=== PATIENT | male | born 1960 | race Caucasian/White ===

== ENCOUNTER 2018-06-12 16:37 | Emergency (ER) | payer BC, SELFPAY ==
--- NOTE | 2018-06-12 17:28 | RAD REPORT ---
EXAM DESCRIPTION: USExtremity Venous Uni Ltd06/12/2018 5:17 pm CLINICAL HISTORY: left leg pain and swelling. COMPARISON: None. FINDINGS: Left common femoral, superficial femoral, popliteal and posterior tibial veins are compre ssible and demonstrate augmentation. Doppler demonstrates good flow. IMPRESSION: No evidence of deep venous thrombosis involving the left lower extremity.
[2018-06-12] MEDS ORDERED: HYDROCODONE/APAP 10/325 TAB ONE (17:34)
[2018-06-12 17:56] LABS: Absolute Lymphocytes (CBC) 1.6 K/uL (0.7-4.9); Absolute Monocytes 0.5 K/uL (0.1-1.3); Absolute Neutrophil 4.8 K/uL (1.8-8.0); Basophils % 0.4 % (0-1.3); Eosinophils % 2.1 % (0-4.4); Lymphocytes % 22.6 % (15.3-44.8); MCH 32.1 pg (27.0-35.0); MCV 93.8 fL (80-100); MPV 9.4 fL (7.6-11.3); Monocytes % 6.4 % (3.3-12.3); RBC Red Blood Cell Count 5.54 M/uL (4.33-5.43)
[2018-06-12 18:09] LABS: Potassium 3.9 mmol/L (3.5-5.1)
--- NOTE | 2018-06-12 19:33 | ER ---
Nurse's Notes [facility] Name: Shady Chapa Age: 57 yrs Sex: Male : 1960 Arrival Date: 06/12/2018 Time: 16:41 Bed 25 Private MD: None, None Diagnosis: Pain in left lower leg Presentation: 06/12 16:49 Presenting complaint: Patient states: "I've got a blood clot in my left leg." Pt ss reports that he has not seen a doctor for this yet, but the symptoms are similar to when he had a DVT in his R leg. L leg pain began 3 days ago. Transition of care: patient was not received from another setting of care. Onset of symptoms was June 09, 2018. Risk Assessment: Do you want to hurt yourself or someone else? Patient reports no desire to harm self or others. Initial Sepsis Screen: Does the patient meet any 2 criteria? No. Patient's initial sepsis screen is negative. Does the patient have a suspected source of infection? No. Patient's initial sepsis screen is negative. Care prior to arrival: None. 16:49 Method Of Arrival: Wheelchair ss 16:49 Acuity: ROSARIO 3 ss Triage Assessment: 17:01 General: Appears uncomfortable, Behavior is anxious. Pain: Complains of pain in left ls4 leg Pain currently is 10 out of 10 on a pain scale. Historical: - Allergies: 16:51 No Known Allergies; ss - Home Meds: 16:51 None [Active]; ss - PMHx: 16:51 DVT; ss - PSHx: 16:51 None; ss - Immunization history:: Adult Immunizations up to date. - Social history:: Smoking status: Patient uses tobacco products, smokes two packs cigarettes per day. - Ebola Screening: : Patient denies exposure to infectious person Patient denies travel to an Ebola-affected area in the 21 days before illness onset. Screenin:00 Abuse screen: Denies threats or abuse. Denies injuries from another. Nutritional ls4 screening: No deficits noted. Tuberculosis screening: No symptoms or risk factors identified. Fall Risk None identified. Assessment: 16:50 General: Appears in no apparent distress. uncomfortable, Behavior is anxious. Pain: ls4 Complains of pain in left calf and left leg Pain currently is 10 out of 10 on a pain scale. Neuro: No deficits noted. Cardiovascular: Pulses are 2+ in right radial artery, right dorsalis pedis artery, left radial artery and left dorsalis pedis artery. Respiratory: Airway is patent Respiratory effort is even, unlabored, Respiratory pattern is regular. GI: No deficits noted. : No deficits noted. Musculoskeletal: Circulation, motion, and sensation intact. Capillary refill < 3 seconds, Range of motion: intact in all extremities, Swelling absent. Vital Signs: 16:48 BP 130 / 86; Pulse 84; Resp 18; Temp 98.2(TE); Pulse Ox 95% on R/A; Weight 97.52 kg; ss Height 5 ft. 9 in. (175.26 cm); Pain 10/10; 18:00 BP 128 / 76; Pulse 80; Resp 16; Pulse Ox 97% on R/A; Pain 3/10; ls4 19:00 BP 126 / 70; Pulse 78; Resp 16; Pulse Ox 97% on R/A; Pain 3/10; ls4 19:30 BP 132 / 84; Pulse 78; Resp 16; Pulse Ox 99% on R/A; Pain 3/10; ls4 16:48 Body Mass Index 31.75 (97.52 kg, 175.26 cm) ED Course: 16:41 Patient arrived in ED. mr 16:42 None, None is Private Physician. mr 16:48 Arm band placed on right wrist. ss 16:51 Triage completed. ss 16:51 Cassandra Batista FNP-C is [facility]. kb 16:51 Tad No MD is Attending Physician. kb 16:56 Dee Berman, RN is Primary Nurse. ls4 17:01 Patient has correct armband on for positive identification. Bed in low position. Call ls4 light in reach. Side rails up X 1. 17:01 No provider procedures requiring assistance completed. ls4 17:11 Radiology exam delayed due to waiting for pain meds before doing venous doppler- ER to hr call when done giving meds. 17:17 US Extremity Venous Unilateral Ltd In Process Unspecified. EDMS 19:15 US LE Artery Uni Ltd In Process Unspecified. EDMS 20:21 Patient did not have IV access during this emergency room visit. ls4 Administered Medications: 17:27 Drug: [place] 10 mg-325 mg 1 tabs Route: PO; ls4 18:05 Follow up: Response: No adverse reaction; Pain is decreased ls4 Outcome: 18:38 Condition: stable ls4 19:32 Discharge ordered by MD. brooke 19:51 Discharged to home ambulatory. ls4 19:51 Discharge instructions given to patient, Instructed on discharge instructions, follow up and referral plans. medication usage, safety practices, Demonstrated understanding of instructions, follow-up care, medications. 19:56 Patient left the ED. ls4 Signatures: Dispatcher [employer] EDTN Cassandra Batista, CLOTH LAMINATING SUPERVISOR-C CLOTH LAMINATING SUPERVISOR-Marlee Connor mr Tim, Courtney Gupta, RN RN Dee Armas, RN RN ls4
--- NOTE | 2018-06-12 19:33 | EDPHYS ---
Physician Documentation [facility] Name: Shady Chapa Age: 57 yrs Sex: Male : 1960 Arrival Date: 06/12/2018 Time: 16:41 Bed 25 Private MD: None, None ED Physician Tad No HPI: 06/12 17:41 This 57 yrs old Male presents to ER via Wheelchair with complaints of Leg kb Pain. 17:41 The patient presents with pain, that is acute. The complaints affect the left calf. kb Context: The problem was sustained at an unknown site, resulted from an unknown cause, the patient can fully bear weight, the patient is able to ambulate, Problem is a result from a previous injury: No. Onset: The symptoms/episode began/occurred 3 day(s) ago. Modifying factors: The symptoms are alleviated by nothing. the symptoms are aggravated by movement, palpation. Associated signs and symptoms: Pertinent positives: calf tenderness, Pertinent negatives fever, nausea, numbness, rash, swelling, tingling, vomiting, warmth, weakness. Treatment prior to arrival includes: no previous treatment. Severity of symptoms: At their worst the symptoms were severe, in the emergency department the symptoms are unchanged. The patient has experienced a previous episode, and the symptoms today are exactly the same. The patient has not recently seen a physician. 17:50 Pt reports left calf pain that is exactly the same as when he had a blood clot in his kb right calf. States he recently drove to [place] and thinks that is why he developed a clot. . Historical: - Allergies: 16:51 No Known Allergies; ss - Home Meds: 16:51 None [Active]; ss - PMHx: 16:51 DVT; ss - PSHx: 16:51 None; ss - Immunization history:: Adult Immunizations up to date. - Social history:: Smoking status: Patient uses tobacco products, smokes two packs cigarettes per day. - Ebola Screening: : Patient denies exposure to infectious person Patient denies travel to an Ebola-affected area in the 21 days before illness onset. ROS: 17:22 Constitutional: Negative for fever, chills, and weight loss, ENT: Negative for injury, kb pain, and discharge, Neck: Negative for injury, pain, and swelling, Cardiovascular: Negative for chest pain, palpitations, and edema, Respiratory: Negative for shortness of breath, cough, wheezing, and pleuritic chest pain, Abdomen/GI: Negative for abdominal pain, nausea, vomiting, diarrhea, and constipation, Back: Negative for injury and pain, : Negative for injury, bleeding, discharge, and swelling, Skin: Negative for injury, rash, and discoloration, Neuro: Negative for headache, weakness, numbness, tingling, and seizure. 17:22 MS/extremity: Positive for pain, of the left calf. Exam: 17:40 Constitutional: This is a well developed, well nourished patient who is awake, alert, kb and in no acute distress. Head/Face: Normocephalic, atraumatic. Chest/axilla: Normal chest wall appearance and motion. Nontender with no deformity. No lesions are appreciated. Cardiovascular: Regular rate and rhythm with a normal S1 and S2. No gallops, murmurs, or rubs. Normal PMI, no JVD. No pulse deficits. Respiratory: Lungs have equal breath sounds bilaterally, clear to auscultation and percussion. No rales, rhonchi or wheezes noted. No increased work of breathing, no retractions or nasal flaring. Abdomen/GI: Soft, non-tender, with normal bowel sounds. No distension or tympany. No guarding or rebound. No evidence of tenderness throughout. Skin: Warm, dry with normal turgor. Normal color with no rashes, no lesions, and no evidence of cellulitis. Neuro: Awake and alert, GCS 15, oriented to person, place, time, and situation. Cranial nerves II-XII grossly intact. Motor strength 5/5 in all extremities. Sensory grossly intact. Cerebellar exam normal. Normal gait. 17:40 Musculoskeletal/extremity: Extremities: grossly normal except: noted in the left calf: pain, tenderness, ROM: intact in all extremities, Circulation is intact in all extremities. Sensation intact. Severe pain noted. Weight bearing: able to fully bear weight, Calves: are tender, on left. Vital Signs: 16:48 BP 130 / 86; Pulse 84; Resp 18; Temp 98.2(TE); Pulse Ox 95% on R/A; Weight 97.52 kg; ss Height 5 ft. 9 in. (175.26 cm); Pain 10/10; 18:00 BP 128 / 76; Pulse 80; Resp 16; Pulse Ox 97% on R/A; Pain 3/10; ls4 19:00 BP 126 / 70; Pulse 78; Resp 16; Pulse Ox 97% on R/A; Pain 3/10; ls4 19:30 BP 132 / 84; Pulse 78; Resp 16; Pulse Ox 99% on R/A; Pain 3/10; ls4 16:48 Body Mass Index 31.75 (97.52 kg, 175.26 cm) ss MDM: 16:51 Patient medically screened. kb 17:39 Data reviewed: vital signs, nurses notes. Data interpreted: Pulse oximetry: on room air kb is 95 %. Interpretation: normal. 19:31 Counseling: I had a detailed discussion with the patient and/or guardian regarding: the kb historical points, exam findings, and any diagnostic results supporting the discharge/admit diagnosis, lab results, radiology results, the need for outpatient follow up, a family practitioner, to return to the emergency department if symptoms worsen or persist or if there are any questions or concerns that arise at home. 06/12 17:29 Order name: CBC with Diff; Complete Time: 18:03 kb 06/12 17:29 Order name: Basic Metabolic Panel; Complete Time: 18:13 kb 06/12 16:55 Order name: Extremity Venous Unilateral Ltd; Complete Time: 17:30 kb 06/12 18:29 Order name: LE Artery Uni Ltd kb Administered Medications: 17:27 Drug: [place] 10 mg-325 mg 1 tabs Route: PO; ls4 18:05 Follow up: Response: No adverse reaction; Pain is decreased ls4 Disposition: 06/13 06:32 Co-signature as Attending Physician, Tad No MD I agree with the assessment and jay plan of care. Disposition: 06/12/18 19:32 Discharged to Home. Impression: Pain in left lower leg. - Condition is Stable. - Discharge Instructions: Musculoskeletal Pain. - Prescriptions for Tramadol 50 mg Oral Tablet - take 1 tablet by ORAL route every 8 hours as needed; 12 tablet. - Medication Reconciliation Form, Thank You Letter, Antibiotic Education, Prescription Opioid Use form. - Follow up: Emergency Department; When: As needed; Reason: Worsening of condition. Follow up: Private Physician; When: 2 - 3 days; Reason: Recheck today's complaints, Continuance of care, Re-evaluation by your physician. Signatures: Dispatcher [employer] EDMS Cassandra Batista, IN SERVICE EDUCATOR-C IN SERVICE EDUCATOR-Ckb Tad No MD MD cha Smirch, Shelby, RN RN ss Dee Berman RN RN ls4 Corrections: (The following items were deleted from the chart) 06/12 17:41 17:40 Musculoskeletal/extremity: Extremities: grossly normal except: noted in the left kb calf: pain, tenderness, ROM: intact in all extremities, Circulation is intact in all extremities. Sensation intact. Weight bearing: able to fully bear weight, Calves: are tender, on left, kb 17:51 17:41 The patient has not experienced similar symptoms in the past, [facility] 19:56 19:32 06/12/2018 19:32 Discharged to Home. Impression: Pain in left lower leg. ls4 Condition is Stable. Forms are Medication Reconciliation Form, Thank You Letter, Antibiotic Education, Prescription Opioid Use. Follow up: Emergency Department; When: As needed; Reason: Worsening of condition. Follow up: Private Physician; When: 2 - 3 days; Reason: Recheck today's complaints, Continuance of care, Re-evaluation by your physician. kb
[2018-06-12 20:48] VITALS: BP 130/86; TEMP 98.2; O2SAT 95
--- NOTE | 2018-06-13 10:24 | RAD REPORT ---
EXAM DESCRIPTION: US - Lower Extremity Artery Uni Ltd - 06/12/2018 7:14 pm CLINICAL HISTORY: Leg pain COMPARISON: None. TECHNIQUE: Doppler and grayscale evaluation of the left lower extremity arterial tree performed. Wav eforms and velocity values were obtained along with visual inspection. FINDINGS: Triphasic waveform pattern seen along the length of the left lower extremity.No occlusion or focal flow restricting lesion identifiable. Common femoral artery peak systolic velocity was 120 cm/second. Femoral artery velocity values range from 84 - 106 cm/second. Velocity taper to 59 cm/second in the popliteal artery. Posterior tibial art surinder was 74 cm/second with the dorsalis pedis artery 86 cm/second. IMPRESSION: Normal triphasic waveform pattern along the length of the left lower extremity. No signi ficant atherosclerotic change, focal flow restricting lesion or occlusion.
== END 2018-06-12 19:56 | disposition home or self-care (01) ==
LOC: ER 16:37
DX: M79.662 Pain in left lower leg (principal); F17.210 Nicotine dependence, cigarettes, uncomplicated; Z86.718 Personal history of other venous thrombosis and embolism
CPT/HCPCS: 36415; 80048; 85025; 93926; 93971; 99283

== ENCOUNTER → 2023-09-04 | Emergency (ER) | payer SELFPAY ==
[~2023-09-04] MED LIST: APIXABAN 5 MG TABLET ONE
--- NOTE | 2023-09-05 01:49 | ER ---
Nurse's Notes [facility] Name: Shady Chapa Age: 62 yrs Sex: Male : 1960 Arrival Date: 09/04/2023 Time: 23:41 Bed 10 Private MD: Diagnosis: Deep Venous thrombosis Presentation: 09/04 00:11 Chief complaint: Patient states: left calf pain, swollen and tight for 9 days, has vc1 polyps so sits on toilet a lot. History of right leg DVT. Coronavirus screen: Client denies travel out of the [place] in the last 14 days. At this time, the client does not indicate any symptoms associated with coronavirus-19. Ebola Screen: Patient negative for fever greater than or equal to 101.5 degrees Fahrenheit, and additional compatible Ebola Virus Disease symptoms Patient denies exposure to infectious person. Patient denies travel to an Ebola-affected area in the 21 days before illness onset. No symptoms or risks identified at this time. Risk Assessment: Do you want to hurt yourself or someone else? Patient reports no desire to harm self or others. Onset of symptoms was September 03, 2023. Care prior to arrival: Medication(s) given: ASA, started taking aspirin when swelling started. 00:11 Method Of Arrival: Ambulatory vc1 00:11 Acuity: ROSARIO 3 vc1 00:11 Initial Sepsis Screen: Does the patient meet any 2 criteria? No. Patient's initial vc1 sepsis screen is negative. Does the patient have a suspected source of infection? No. Patient's initial sepsis screen is negative. Triage Assessment: 00:15 General: Appears in no apparent distress. comfortable, Behavior is calm, cooperative, vc1 appropriate for age. Pain: Complains of pain in left calf Pain does not radiate. Pain currently is 5 out of 10 on a pain scale. at worst was 8 out of 10 on a pain scale. Quality of pain is described as sharp, Pain began 9 days ago Is continuous, Aggravated by bending foot. EENT: No deficits noted. No signs and/or symptoms were reported regarding the EENT system. Neuro: Level of Consciousness is awake, alert, obeys commands, Oriented to person, place, time, situation, Appropriate for age. Cardiovascular: No deficits noted. Heart tones S1 S2. Respiratory: Airway is patent Respiratory effort is even, unlabored, Respiratory pattern is regular, symmetrical, Breath sounds are clear. GI: No deficits noted. No signs and/or symptoms were reported involving the gastrointestinal system. : No deficits noted. No signs and/or symptoms were reported regarding the genitourinary system. Derm: Reports pain that is 5 out of 10 on a pain scale. swelling to left lower legs. Musculoskeletal: Reports pain in left calf. Historical: - Allergies: 00:13 No Known Allergies; vc1 - PMHx: 00:13 DVT; Polyps (DVT); vc1 - PSHx: 00:13 Polyp (DVT); Right IVC filter (DVT); vc1 - Immunization history:: Client reports having NOT received the Covid vaccine. Flu vaccine is not up to date. - Social history:: Smoking status: Patient reports the use of cigarette tobacco products, smokes one pack cigarettes per day. Screenin:14 Abuse screen: Denies threats or abuse. Nutritional screening: No deficits noted. vc1 Tuberculosis screening: No symptoms or risk factors identified. 00:14 [facility] ED Fall Risk Assessment (Adult) History of falling in the last 3 months, vc1 including since admission No falls in past 3 months (0 pts) Confusion or Disorientation No (0 pts) Intoxicated or Sedated No (0 pts) Impaired Gait No (0 pts) Mobility Assist Device Used No (0 pt) Altered Elimination No (0 pt) Score/Fall Risk Level 0 - 2 = Low Risk Oriented to surroundings, Maintained a safe environment, Educated pt \T\ family on fall prevention, incl call for assistance when getting out of bed. Assessment: 02:16 General: See triage assessment. vc1 Vital Signs: 00:11 Weight 81.65 kg; Height 5 ft. 9 in. ; Pain 5/10; vc1 00:28 BP 117 / 62; Pulse 58; Resp 17; Temp 98.1; Pulse Ox 100% ; jr12 00:11 Body Mass Index 26.58 (81.65 kg, 175.26 cm) vc1 00:11 Pain Scale: Adult vc1 ED Course: 09/03 23:57 Patient arrived in ED. gm2 23:59 Alex Rodas DO is Attending Physician. ms3 03 00:13 Triage completed. vc1 00:14 Arm band placed on left wrist. vc1 00:17 Patient has correct armband on for positive identification. Placed in gown. Call light vc1 in reach. 00:57 US Extremity Venous Unilateral Ltd In Process Unspecified. EDMS 01:48 Edward Carlson DO is Referral Physician. ms3 02:15 No provider procedures requiring assistance completed. Patient did not have IV access vc1 during this emergency room visit. Administered Medications: 02:10 Drug: Eliquis PO 10 mg PO once Route: PO; cg Medication: 00:17 VIS not applicable for this client. vc1 Outcome: 01:48 Discharge ordered by MD. ms3 02:15 Discharged to home ambulatory, vc1 02:15 Condition: good 02:15 Discharge instructions given to patient, Instructed on discharge instructions, follow up and referral plans. medication usage, Demonstrated understanding of instructions, follow-up care, medications, Prescriptions given X 1, 02:17 Patient left the ED. vc1 Signatures: Dispatcher [employer] EDMS Arcelia Valencia, RN RN Alex Ponce DO DO ms3 Yazmin Dillon RN RN vc1 Silvana Machado [facility], [place] Alyson Julian 2
--- NOTE | 2023-09-05 01:49 | EDPHYS ---
Physician Documentation [facility] Name: Shady Chapa Age: 62 yrs Sex: Male : 1960 Arrival Date: 09/04/2023 Time: 23:41 Bed 10 Private MD: ED Physician Alxe Rodas HPI: 09/04 00:20 This 62 yrs old Male presents to ER via Ambulatory with complaints of Leg Pain, Leg ms3 Swelling. 00:20 62-year-old male with past medical history of DVT presents to the emergency department ms3 for left leg swelling for 9 days. Patient states his left calf pain is worse with flexing his foot. Patient denies alleviating factors. Patient denies chest pain, shortness of breath, nausea, vomiting, fevers, chills. Historical: - Allergies: 00:13 No Known Allergies; vc1 - PMHx: 00:13 DVT; Polyps (DVT); vc1 - PSHx: 00:13 Polyp (DVT); Right IVC filter (DVT); vc1 - Immunization history:: Client reports having NOT received the Covid vaccine. Flu vaccine is not up to date. - Social history:: Smoking status: Patient reports the use of cigarette tobacco products, smokes one pack cigarettes per day. ROS: 00:20 Constitutional: Negative for fever, and chills. Neck: Negative for injury, pain, and ms3 swelling, Cardiovascular: Negative for chest pain, and palpitations. Respiratory: Negative for shortness of breath, cough, wheezing, and pleuritic chest pain, Abdomen/GI: Negative for abdominal pain, nausea, vomiting, diarrhea, and constipation, 00:20 MS/extremity: Positive for pain, swelling, tenderness, Exam: 00:20 Constitutional: This is a well developed, well nourished patient who is awake, alert, ms3 and in no acute distress. Head/Face: Normocephalic, atraumatic. Neck: Trachea midline, no cervical lymphadenopathy. Supple, full range of motion without nuchal rigidity, or vertebral point tenderness. No Meningismus. Chest/axilla: Normal chest wall appearance and motion. Nontender with no deformity. Cardiovascular: Regular rate and rhythm with a normal S1 and S2. No gallops, murmurs, or rubs. Normal PMI, no JVD. No pulse deficits. Respiratory: Lungs have equal breath sounds bilaterally, clear to auscultation and percussion. No rales, rhonchi or wheezes noted. No increased work of breathing, no retractions or nasal flaring. Abdomen/GI: Soft, non-tender, with normal bowel sounds. No distension or tympany. No guarding or rebound. No evidence of tenderness throughout. Skin: Warm, dry with normal turgor. Normal color with no rashes, no lesions, and no evidence of cellulitis. 00:20 Musculoskeletal/extremity: Extremities: noted in the left calf: pain, swelling, tenderness, Vital Signs: 00:11 Weight 81.65 kg; Height 5 ft. 9 in. ; Pain 5/10; vc1 00:28 BP 117 / 62; Pulse 58; Resp 17; Temp 98.1; Pulse Ox 100% ; jr12 00:11 Body Mass Index 26.58 (81.65 kg, 175.26 cm) vc1 00:11 Pain Scale: Adult vc1 MDM: 00:18 Patient medically screened. ms3 00:20 Differential diagnosis: DVT versus musculoskeletal pain versus peripheral neuropathy. ms3 01:51 Data reviewed: vital signs, nurses notes, radiologic studies, ultrasound, and as a ms3 result, I will discharge patient. I considered the following discharge prescriptions or medication management in the emergency department Medications were administered in the Emergency Department. See MAR. Discussion of test interpretation with radiology: I had a discussion with radiology regarding a test interpretation. Popliteal DVT. Care significantly affected by the following chronic conditions: DVT. Counseling: I had a detailed discussion with the patient and/or guardian regarding the historical points, exam findings, and any diagnostic results supporting the discharge/admit diagnosis, radiology results, the need for outpatient follow up, to return to the emergency department if symptoms worsen or persist or if there are any questions or concerns that arise at home. Special discussion: I discussed with the patient/guardian in detail that at this point there is no indication for admission to the hospital. It is understood, however, that if the symptoms persist or worsen the patient needs to return immediately for re-evaluation. ED course: On reevaluation patient is without chest pain, shortness of breath. Discussed positive DVT on ultrasound with patient. Patient given 10 mg Eliquis in emergency department. Patient given prescription for Eliquis starting pack. Patient to follow-up with Dr. Carlson in 1 to 2 days. Patient understands and agrees with plan. All questions were answered. Return precautions discussed include worsening symptoms, or any other concerns. 09/04 00:19 Order name: US Extremity Venous Unilateral Ltd ms3 Administered Medications: 02:10 Drug: Eliquis PO 10 mg PO once Route: PO; cg Disposition Summary: 09/05/23 01:48 Discharge Ordered Notes: Location: Home ms3 Condition: Stable ms3 Diagnosis - Deep Venous thrombosis ms3 Followup: ms3 - With: Edward Carlson DO - When: 1 - 2 days - Reason: Recheck today's complaints Discharge Instructions: - Discharge Summary Sheet ms3 - Deep Vein Thrombosis ms3 Forms: - Medication Reconciliation Form ms3 - Thank You Letter ms3 - Antibiotic Education ms3 - Prescription Opioid Use ms3 - Patient Portal Instructions ms3 - Leadership Thank You Letter ms3 Prescriptions: - Eliquis DVT-PE Treat 30D Start 5 mg (74 tabs) Oral Tablet, Dose Pack - take 1 tablet ORAL route per package directions; 1 Pack; Refills: 0, Product ms3 Selection Permitted Signatures: Dispatcher [employer] Arcelia Stark, RN RN Alex Ponce DO DO ms3 Yazmin Dillon RN RN vc1
[2023-09-05 02:29] VITALS: BP 117/62; TEMP 98.1; O2SAT 100
--- NOTE | 2023-09-05 14:07 | RAD REPORT ---
EXAM DESCRIPTION: ADDENDUM #1 I communicated the above findings by telephone with Dr. Alex Rodas at 09/05/2023 1:41 AM CDT, who dem onstrated understanding of the above finding(s)/recommendation(s) and provided positive read back of the communication. Electronically signed by: Bear Perez MD 09/05/2023 02:04 AM CDT End of Addendum EXAMINATION: US EXTREMITY VEINS UNILATERAL CLINICAL HISTORY: Male, 62 years old, swelling, pain COMPARISON: None. TECHNIQUE: Grayscale and color/spectral Doppler ultrasound of the left lower extremity. FINDINGS: Loss of compressibility and detectable blood flow with heterogeneous occlusion of the popl iteal vein. Normal flow and compressibility in the left lower extremity common femoral, greater saphenous, femora l, peroneal and posterior tibial veins. No intraluminal thrombus is visualized. Visualized waveforms demonstrate normal respiratory variability. IMPRESSION: Occlusive, chronic appearing thrombus of the left popliteal vein. Physician notification of the above critical finding(s) is pending at the time of report dictation; a n addendum will be added after communication. Electronically signed by: Bear Perez MD 09/05/2023 01:36 AM CDT Due to temporary technical issues with the PACS/Fluency reporting system, reports are being signed by the in house radiologist without review as a courtesy to ensure prompt reporting. The interpreting r adiologist is fully responsible for the content of the report.
== END ==
LOC: ER 23:41
DX: I82.402 Acute embolism and thrombosis of unspecified deep veins of left lower extremity (principal)
CPT/HCPCS: 93971

== ENCOUNTER 2023-10-03 15:15 | Emergency (ER) | payer OTHER ==
[2023-10-03 16:26] LABS: Absolute Basophils 0.1 K/uL (0-0.5); Absolute Eosinophils 0.2 K/uL (0-0.5); Absolute Lymphocytes (CBC) 1.3 K/uL (0.7-4.9); Absolute Monocytes 0.4 K/uL (0.1-1.3); Absolute Neutrophil 3.7 K/uL (1.8-8.0); Basophils % 1.3 % (0-1.3); Eosinophils % 3.2 % (0-4.4); Hematocrit 23.4 % (39.6-49.0); Lymphocytes % 22.8 % (15.3-44.8); MCH 19.5 pg (27.0-35.0); MCV 64.9 fL (80-100); MPV 8.2 fL (7.6-11.3); Monocytes % 6.6 % (3.3-12.3); Neutrophils % 66.1 % (41.7-73.7); Platelets 253 thou/uL (152-406); RBC Red Blood Cell Count 3.61 M/uL (4.33-5.43); Red Cell Distribution Width 19.1 % (12.1-15.2)
[2023-10-03 16:49] LABS: Anion Gap 6.6 mEq/L (5.0-15.0); Potassium 3.6 mEq/L (3.5-5.1)
--- NOTE | 2023-10-03 16:56 | ER ---
[facility] Name: Shady Chapa Age: 62 yrs Sex: Male : 1960 Arrival Date: 10/03/2023 Time: 15:15 Bed 8 Private MD: Diagnosis: Anemia, unspecified Presentation: 10/02 15:22 Chief complaint: Patient states: pt had resent blood work done and his doctor called as6 and said to come to the ER due to low hemoglobin. Coronavirus screen: At this time, the client does not indicate any symptoms associated with coronavirus-19. Ebola Screen: No symptoms or risks identified at this time. Initial Sepsis Screen: Does the patient meet any 2 criteria? No. Patient's initial sepsis screen is negative. Does the patient have a suspected source of infection? No. Patient's initial sepsis screen is negative. Risk Assessment: Do you want to hurt yourself or someone else? Patient reports no desire to harm self or others. Onset of symptoms was October 03, 2023. 15:22 Method Of Arrival: Ambulatory as6 15:22 Acuity: ROSARIO 3 as6 Historical: - Allergies: 15:23 No Known Allergies; as6 - PMHx: 15:23 polyps (DVT); DVT; as6 - PSHx: 15:23 Right IVC filter; Polyp; as6 - Immunization history:: Adult Immunizations not up to date. - Infectious Disease History:: Denies. - Social history:: Smoking status: Patient reports the use of cigarette tobacco products, smokes one pack cigarettes per day. Screenin:27 [facility] ED Fall Risk Assessment (Adult) History of falling in the last 3 months, kc6 including since admission No falls in past 3 months (0 pts) Confusion or Disorientation No (0 pts) Intoxicated or Sedated No (0 pts) Impaired Gait No (0 pts) Mobility Assist Device Used No (0 pt) Altered Elimination No (0 pt) Score/Fall Risk Level 0 - 2 = Low Risk. Abuse screen: Denies threats or abuse. Denies injuries from another. Nutritional screening: No deficits noted. Tuberculosis screening: No symptoms or risk factors identified. Assessment: 15:54 General: Appears in no apparent distress. comfortable, well groomed, well developed, kc6 Behavior is calm, cooperative, appropriate for age. Pain: Denies pain. Neuro: Level of Consciousness is awake, alert, obeys commands, Oriented to person, place, time, situation, Appropriate for age. Cardiovascular: Capillary refill < 3 seconds. Respiratory: Airway is patent Trachea midline Respiratory effort is even, unlabored, Respiratory pattern is regular, symmetrical. GI: Reports rectal bleeding, bloody stool. : No signs and/or symptoms were reported regarding the genitourinary system. EENT: No signs and/or symptoms were reported regarding the EENT system. Derm: No signs and/or symptoms reported regarding the dermatologic system. Skin is intact, is healthy with good turgor, Skin is pink, warm \T\ dry. Musculoskeletal: No signs and/or symptoms reported regarding the musculoskeletal system. Circulation, motion, and sensation intact. Capillary refill < 3 seconds, Range of motion: intact in all extremities. 16:51 Reassessment: Patient appears in no apparent distress at this time. No changes from kc6 previously documented assessment. Patient and/or family updated on plan of care and expected duration. Pain level reassessed. Patient is alert, oriented x 3, equal unlabored respirations, skin warm/dry/pink. Vital Signs: 15:22 BP 117 / 68; Pulse 73; Resp 18 S; Temp 97.9(TE); Pulse Ox 99% on R/A; Weight 81.65 kg as6 (R); Height 5 ft. 9 in. (R); Pain 9/10; 16:51 BP 108 / 71; Pulse 65; Resp 16 S; Pulse Ox 100% on R/A; kc6 17:06 BP 110 / 68; Pulse 70; Resp 16; Pulse Ox 99% ; ko1 15:22 Body Mass Index 26.58 (81.65 kg, 175.26 cm) as6 15:22 Pain Scale: Adult as6 ED Course: 15:17 Patient arrived in ED. im 15:18 Alex Rodas DO is Attending Physician. ms3 15:21 Arm band placed on right wrist. as6 15:23 Triage completed. as6 15:26 Susie Zayas, ELIANA is Primary Nurse. kc6 15:27 Patient has correct armband on for positive identification. Placed in gown. Bed in low kc6 position. Call light in reach. Side rails up X 1. Client placed on continuous cardiac and pulse oximetry monitoring. NIBP monitoring applied. Warm blanket given. 15:54 Inserted saline lock: 20 gauge in right wrist, using aseptic technique. Blood collected.kc6 16:55 Edward Carlson DO is Referral Physician. ms3 17:06 Provided Education on: na. ko1 17:06 No provider procedures requiring assistance completed. IV discontinued, intact, ko1 bleeding controlled, No redness/swelling at site. Pressure dressing applied. Administered Medications: No medications were administered Medication: 17:06 VIS not applicable for this client. ko1 Outcome: 16:56 Discharge ordered by . ms3 17:07 Discharged to home ambulatory, ko1 17:07 Condition: stable 17:07 Discharge instructions given to patient, Instructed on discharge instructions, follow up and referral plans. Demonstrated understanding of instructions, follow-up care, 17:11 Patient left the ED. ko1 Signatures: Alex Rodas DO DO ms3 Bryant Herrera RN RN as6 Susie Zayas RN RN kc6 Azalia Flowers RN RN ko1 Ronna Diaz
--- NOTE | 2023-10-03 16:56 | EDPHYS ---
Physician Documentation [facility] Name: Shady Chapa Age: 62 yrs Sex: Male : 1960 Arrival Date: 10/03/2023 Time: 15:15 Bed 8 Private MD: ED Physician Alex Rodas HPI: 10/02 15:43 This 62 yrs old Male presents to ER via Ambulatory with complaints of Abnormal Lab [facility] Results. 15:43 [id number] male with past medical history of colon polyps and DVT presents to [facility] the emergency department for abnormal labs. Patient states he had lab work drawn last and was called on Tuesday stating his hemoglobin was less than 6. His black stools. Patient states he does have intermittent bloody stools; however, has not had any bloody stools recently. Patient denies pain. Historical: - Allergies: 15:23 No Known Allergies; as6 - PMHx: 15:23 polyps (DVT); DVT; as6 - PSHx: 15:23 Right IVC filter; Polyp; as6 - Immunization history:: Adult Immunizations not up to date. - Infectious Disease History:: Denies. - Social history:: Smoking status: Patient reports the use of cigarette tobacco products, smokes one pack cigarettes per day. ROS: 15:43 Constitutional: Negative for fever, and chills. Neck: Negative for injury, pain, and ms3 swelling, Cardiovascular: Negative for chest pain, and palpitations. Respiratory: Negative for shortness of breath, cough, wheezing, and pleuritic chest pain, Abdomen/GI: Negative for abdominal pain, nausea, vomiting, diarrhea, and constipation, MS/Extremity: Negative for injury and deformity, Skin: Negative for injury, rash, and discoloration, Exam: 15:43 Constitutional: This is a well developed, well nourished patient who is awake, alert, ms3 and in no acute distress. Head/Face: Normocephalic, atraumatic. Neck: Trachea midline, no cervical lymphadenopathy. Supple, full range of motion without nuchal rigidity, or vertebral point tenderness. No Meningismus. Chest/axilla: Normal chest wall appearance and motion. Nontender with no deformity. Cardiovascular: Regular rate and rhythm with a normal S1 and S2. No gallops, murmurs, or rubs. Normal PMI, no JVD. No pulse deficits. Respiratory: Lungs have equal breath sounds bilaterally, clear to auscultation and percussion. No rales, rhonchi or wheezes noted. No increased work of breathing, no retractions or nasal flaring. Abdomen/GI: Soft, non-tender, with normal bowel sounds. No distension or tympany. No guarding or rebound. No evidence of tenderness throughout. Skin: Warm, dry with normal turgor. Normal color with no rashes, no lesions, and no evidence of cellulitis. MS/ Extremity: Pulses equal, no cyanosis. Neurovascular intact. Full, normal range of motion. Vital Signs: 15:22 BP 117 / 68; Pulse 73; Resp 18 S; Temp 97.9(TE); Pulse Ox 99% on R/A; Weight 81.65 kg as6 (R); Height 5 ft. 9 in. (R); Pain 9/10; 16:51 BP 108 / 71; Pulse 65; Resp 16 S; Pulse Ox 100% on R/A; kc6 17:06 BP 110 / 68; Pulse 70; Resp 16; Pulse Ox 99% ; ko1 15:22 Body Mass Index 26.58 (81.65 kg, 175.26 cm) as6 15:22 Pain Scale: Adult as6 MDM: 15:25 Patient medically screened. ms3 15:43 Differential Diagnosis Anemia vs lab abnormality. ms3 16:56 Data reviewed: vital signs, nurses notes, lab test result(s), and as a result, I will ms3 discharge patient. Counseling: I had a detailed discussion with the patient and/or guardian regarding the historical points, exam findings, and any diagnostic results supporting the discharge/admit diagnosis, lab results, the need for outpatient follow up, to return to the emergency department if symptoms worsen or persist or if there are any questions or concerns that arise at home. Special discussion: I discussed with the patient/guardian in detail that at this point there is no indication for admission to the hospital. It is understood, however, that if the symptoms persist or worsen the patient needs to return immediately for re-evaluation. ED course: Discussed labs with patient. Patient hemoglobin less than 6 on currently 7. Patient to follow-up with Dr. Carlson in 2 to 3 days for reevaluation. Patient understands and agrees with plan. All questions were answered. Patient denies symptoms of lightheadedness, shortness of breath. On reevaluation patient is alert, no apparent distress, nontoxic-appearing, ambulatory emerged primary, speaking full sentences. 10/02 15:25 Order name: CBC with Diff ms3 10/02 15:25 Order name: BMP; Complete Time: 16:52 ms3 10/02 15:25 Order name: Type And Screen ms3 Administered Medications: No medications were administered Disposition Summary: 10/03/23 16:56 Discharge Ordered Notes: Location: Home ms3 Condition: Stable ms3 Diagnosis - Anemia, unspecified ms3 Followup: ms3 - With: Edward Carlson DO - When: 2 - 3 days - Reason: Recheck today's complaints Discharge Instructions: - Discharge Summary Sheet ms3 - Anemia ms3 Forms: - Medication Reconciliation Form ms3 - Thank You Letter ms3 - Antibiotic Education ms3 - Prescription Opioid Use ms3 - Patient Portal Instructions ms3 - Leadership Thank You Letter ms3 Signatures: Dispatcher [employer] Alex Gonzalez DO DO ms3 Bryant Herrera, RN RN as6
[2023-10-03 19:32] LABS: Anisocytosis 2+; Blood Morphology Comment NOTED (NOT SEEN); Platelet Estimate ADEQ; Poikilocytosis 2+; White Blood Cell Scan OK (OK)
[2023-10-03 23:45] VITALS: BP 110/68; TEMP 97.9; O2SAT 99
== END 2023-10-03 17:11 | disposition home or self-care (01) ==
LOC: ER 15:15
DX: D64.9 Anemia, unspecified (principal); F17.210 Nicotine dependence, cigarettes, uncomplicated; Z86.718 Personal history of other venous thrombosis and embolism
CPT/HCPCS: 36415; 80048; 85025; 86850; 86900; 86901; 99284

== ENCOUNTER 2023-10-12 07:26 | Day surgery (SDC) | payer OTHER ==
[2023-10-12] MEDS: NA CHLORIDE 0.9% 500 ML ONE (08:05)
[2023-10-12 08:36] VITALS: BMI 26.7
[2023-10-12 09:41] VITALS: O2SAT 99
[2023-10-12 11:13] VITALS: BP 99/49; TEMP 97.4
[2023-10-12 12:55] LABS: Hemoglobin 7.5 g/dL (13.6-17.9)
== END 2023-10-12 10:45 | disposition home or self-care (01) ==
LOC: DS 07:26
PROVIDERS: ATTEND Internal Medicine Gastroenterology
DX: D64.9 Anemia, unspecified (principal); K92.1 Melena
CPT/HCPCS: 36415; 86900; 86850; 86901; 86920; 85018; 85014; 36430; 96365; 96366; P9016; J7040

== ENCOUNTER 2024-02-22 11:57 | Emergency (ER) | payer OTHER ==
--- NOTE | 2024-02-22 13:28 | RAD REPORT ---
EXAM DESCRIPTION: US - Extrem Venous W Compress Kin - 02/22/2024 1:07 pm CLINICAL HISTORY: Pain;Swelling Bilateral leg edema and swelling. COMPARISON: Extremity Venous Uni Ltd dated 09/05/2023 TECHNIQUE: Real-time sonographic interrogation of the left and right lower extremity deep venous sys tems was performed. FINDINGS: There is extensive DVT present bilaterally. This begins at the level of the common femoral vein bilaterally involves the saphenous vein and extends to the popliteal veins bilaterally. IMPRESSION: Extensive bilateral DVT is present.
[2024-02-22 13:40] LABS: Absolute Basophils 0.1 K/uL (0-0.5); Absolute Eosinophils 0.1 K/uL (0-0.5); Absolute Lymphocytes (CBC) 0.7 K/uL (0.7-4.9); Absolute Monocytes 0.4 K/uL (0.1-1.3); Basophils % 0.9 % (0-1.3); Eosinophils % 0.7 % (0-4.4); Hematocrit 27.8 % (39.6-49.0); Hemoglobin 8.5 g/dL (13.6-17.9); Lymphocytes % 10.2 % (15.3-44.8); MCH 22.5 pg (27.0-35.0); MCHC 30.5 g/dL (32.0-36.0); MCV 73.5 fL (80-100); Monocytes % 5.9 % (3.3-12.3); Neutrophils % 82.3 % (41.7-73.7); Platelets 230 thou/uL (152-406); RBC Red Blood Cell Count 3.78 M/uL (4.33-5.43); Red Cell Distribution Width 21.6 % (12.1-15.2)
[2024-02-22 13:55] LABS: Anion Gap 8.9 mEq/L (5.0-15.0); Potassium 3.9 mEq/L (3.5-5.1); Troponin High Sensitivity 6.1 pg/mL (<58.9)
--- NOTE | 2024-02-22 14:33 | RAD REPORT ---
EXAM DESCRIPTION: CT - Chest For Pe Angio - 02/22/2024 2:20 pm CLINICAL HISTORY: Chest pain. PE COMPARISON: No comparisons TECHNIQUE: CT angiogram of the pulmonary arteries was performed with MIP. All CT scans are performed using dose optimization technique as appropriate and may include automated exposure control or mA/KV adjustment according to patient size. FINDINGS: No evidence of pulmonary thromboembolism. No acute aortic finding demonstrated. The lungs are clear. No significant pericardial or pleural fluid. No concerning bony finding. 4.1 cm rounded lesion in the left upper quadrant abutting the spleen is partially visualized this may represent a adrenal lesion. IMPRESSION: No evidence of pulmonary thromboembolism. No acute lung findings.
--- NOTE | 2024-02-22 15:24 | EDPHYS ---
Physician Documentation [facility] Name: Shady Chapa Age: 63 yrs Sex: Male : 1960 Arrival Date: 02/22/2024 Time: 11:57 Bed 7 Private MD: ED Physician Alex Roads HPI: 02/21 13:57 This 63 yrs old Male presents to ER via Wheelchair with complaints of Leg Swelling. ms3 13:57 63-year-old male with past medical history of DVT presents to the emergency department ms3 for bilateral lower extremity swelling and difficulty walking for 2 days. Patient states he was seen at [place] on Tuesday night and diagnosed with pulmonary embolism. Patient states 5 years ago he was started on blood thinners and noted he had bloody stools and stopped blood thinners approximately 2 weeks prior to arrival.. Historical: - Allergies: 12:00 No Known Allergies; ll1 - PMHx: 12:00 DVT; polyps (DVT); ll1 - PSHx: 12:00 Polyp; Right IVC filter; ll1 - Immunization history:: Adult Immunizations up to date. - Infectious Disease History:: Denies. - Social history:: Smoking status: Patient reports the use of cigarette tobacco products, smokes one pack cigarettes per day. ROS: 13:57 Constitutional: Negative for fever, and chills. Cardiovascular: Negative for chest ms3 pain, and palpitations. Respiratory: Negative for shortness of breath, cough, wheezing, and pleuritic chest pain, Abdomen/GI: Negative for abdominal pain, nausea, vomiting, diarrhea, and constipation, 13:57 MS/extremity: Positive for Leg swelling, Exam: 13:55 ECG was reviewed by the Attending Physician. ms3 13:57 Constitutional: This is a well developed, well nourished patient who is awake, alert, ms3 and in no acute distress. Chest/axilla: Normal chest wall appearance and motion. Nontender with no deformity. Cardiovascular: Regular rate and rhythm with a normal S1 and S2. No gallops, murmurs, or rubs. Normal PMI, no JVD. No pulse deficits. Respiratory: Lungs have equal breath sounds bilaterally, clear to auscultation and percussion. No rales, rhonchi or wheezes noted. No increased work of breathing, no retractions or nasal flaring. Abdomen/GI: Soft, non-tender, with normal bowel sounds. No distension or tympany. No guarding or rebound. No evidence of tenderness throughout. 13:57 Musculoskeletal/extremity: Extremities: noted in the left leg and right leg: swelling, Vital Signs: 12:07 BP 103 / 59; Pulse 65; Resp 17; Temp 97.8; Pulse Ox 100% on R/A; Weight 83.46 kg; ll1 Height 5 ft. 9 in. ; Pain 10/10; 12:23 BP 105 / 64; Pulse 62; Resp 18; Temp 98.2; Pulse Ox 98% on R/A; kj2 13:44 BP 118 / 75; Pulse 60; Resp 18; kj2 15:14 BP 109 / 59; Pulse 57; Resp 18; Pulse Ox 99% on R/A; kj2 16:08 BP 103 / 79; Pulse 64; Resp 18; Pulse Ox 97% on R/A; kj2 17:02 BP 116 / 62; Pulse 63; Resp 16; Pulse Ox 97% on R/A; kj2 12:07 Body Mass Index 27.17 (83.46 kg, 175.26 cm) ll1 12:07 Pain Scale: Adult ll1 MDM: 12:10 Patient medically screened. ms3 13:57 Differential diagnosis: DVT versus PE versus heart failure. ms3 16:01 ED course: Discussed case with Dr Coyle and he will evaluate patient on admission.. ms3 16:03 Data reviewed: vital signs, nurses notes, lab test result(s), EKG, radiologic studies, ms3 and as a result, I will Transfer patient . Consideration of Admission/Observation Transfer for DVT intervention. Management of patient was discussed with the following: Client Service Associate: Dr Coyle- will evaluate patient. I considered the following discharge prescriptions or medication management in the emergency department Medications were administered in the Emergency Department. See MAR. Independent interpretation of the following test(s) in the Emergency Department EKG: See my EKG interpretation above. 02/21 12:12 Order name: Basic Metabolic Panel; Complete Time: 13:59 ms3 02/21 12:12 Order name: CBC with Diff; Complete Time: 16:03 ms3 02/21 12:12 Order name: NT PRO-BNP; Complete Time: 13:59 ms3 02/21 12:12 Order name: Troponin HS; Complete Time: 13:59 ms3 02/21 13:48 Order name: CBC Smear Scan; Complete Time: 16:03 EDMS 02/21 16:12 Order name: PT-INR; Complete Time: 18:03 ms3 02/21 12:12 Order name: Extrem Venous W Compression Kin US ms3 02/21 12:12 Order name: CT Chest For PE Angio ms3 02/21 12:12 Order name: EKG; Complete Time: 12:13 ms3 02/21 12:12 Order name: Cardiac monitoring; Complete Time: 13:44 ms3 02/21 12:12 Order name: EKG - Nurse/Tech; Complete Time: 13:44 ms3 02/21 12:12 Order name: IV Saline Lock; Complete Time: 13:32 ms3 02/21 12:12 Order name: Labs collected and sent; Complete Time: 13:32 ms3 02/21 12:12 Order name: O2 Per Protocol; Complete Time: 13:32 ms3 02/21 12:12 Order name: O2 Sat Monitoring; Complete Time: 13:32 ms3 EC:55 Rate is 61 beats/min. Rhythm is regular. QRS [place] is Normal. SD interval is normal. QRS ms3 interval is normal. Clinical impression: NSR w/ Non-specific ST/T Changes. Interpreted by me. Reviewed by me. Administered Medications: 16:09 Drug: Enoxaparin Sub-Q 1 mg/kg Sub-Q once Route: Sub-Q; Site: abdomen; kj2 16:45 Follow up: Response: No adverse reaction kj2 Disposition Summary: 02/22/24 15:23 Transfer Ordered Notes: Transfer Location: [facility] ms3 Reason: Higher level of care ms3 Condition: Stable ms3 Problem: new ms3 Symptoms: are unchanged ms3 Accepting Physician: (02/22/24 19:07) [email or web address] Diagnosis - Bilateral DVT ms3 - Anemia, unspecified ms3 Forms: - Medication Reconciliation Form ms3 - SBAR form ms3 Signatures: Dispatcher [employer] EDMichael Rhodes RN RN [email or web address] Ellie Ward RN RN ll1 Alex Rodas DO DO ms3 Darline Katz RN RN kj2 Corrections: (The following items were deleted from the chart) 19:07 15:23 Dr ms3 [email or web address]
--- NOTE | 2024-02-22 15:24 | ER ---
Nurse's Notes [facility] Name: Shady Chapa Age: 63 yrs Sex: Male : 1960 Arrival Date: 02/22/2024 Time: 11:57 Bed 7 Private MD: Diagnosis: Bilateral DVT;Anemia, unspecified Presentation: 02/21 12:07 Chief complaint: Patient states: Has BLE clots found at [facility] on Tuesday night, ll1 swelling to both legs. Coronavirus screen: Client denies travel out of the [place] in the last 14 days. At this time, the client does not indicate any symptoms associated with coronavirus-19. Ebola Screen: Patient denies travel to an Ebola-affected area in the 21 days before illness onset. Initial Sepsis Screen: Does the patient meet any 2 criteria? No. Patient's initial sepsis screen is negative. Does the patient have a suspected source of infection? No. Patient's initial sepsis screen is negative. Risk Assessment: Do you want to hurt yourself or someone else? Patient reports no desire to harm self or others. Onset of symptoms was February 17, 2024. 12:07 Method Of Arrival: Wheelchair ll1 12:07 Acuity: ROSARIO 3 ll1 Triage Assessment: 12:10 General: Appears distressed, uncomfortable, Behavior is calm, cooperative, appropriate ll1 for age. Pain: Complains of pain in right leg and left leg Quality of pain is described as aching. Musculoskeletal: Reports swelling to BLE. Historical: - Allergies: 12:00 No Known Allergies; ll1 - PMHx: 12:00 DVT; polyps (DVT); ll1 - PSHx: 12:00 Polyp; Right IVC filter; ll1 - Immunization history:: Adult Immunizations up to date. - Infectious Disease History:: Denies. - Social history:: Smoking status: Patient reports the use of cigarette tobacco products, smokes one pack cigarettes per day. Screenin:24 [facility] ED Fall Risk Assessment (Adult) History of falling in the last 3 months, kj2 including since admission No falls in past 3 months (0 pts) Confusion or Disorientation No (0 pts) Intoxicated or Sedated No (0 pts) Impaired Gait Yes (1 pt) Mobility Assist Device Used Yes (1 pt) Altered Elimination No (0 pt) Score/Fall Risk Level 0 - 2 = Low Risk Maintained a safe environment, Educated pt \T\ family on fall prevention, incl call for assistance when getting out of bed, Hourly rounding (assess needs \T\ fall precautionary measures) done. Abuse screen: Denies threats or abuse. Denies injuries from another. Nutritional screening: No deficits noted. Tuberculosis screening: No symptoms or risk factors identified. Assessment: 12:22 General: Appears in no apparent distress. Behavior is calm, cooperative. Pain: Denies kj2 pain. Neuro: Level of Consciousness is awake, alert, Oriented to person, place, time, situation. Cardiovascular: Patient's skin is warm and dry. Respiratory: Airway is patent. GI: No deficits noted. : No deficits noted. 13:33 Reassessment: No changes from previously documented assessment. Patient and/or family kj2 updated on plan of care and expected duration. Pain level reassessed. Patient is alert, oriented x 3, equal unlabored respirations, skin warm/dry/pink. 15:13 Reassessment: Patient appears in no apparent distress at this time. Patient and/or kj2 family updated on plan of care and expected duration. Pain level reassessed. Patient is alert/active/playful, equal unlabored respirations, skin warm/dry/pink. 16:08 Reassessment: Patient appears in no apparent distress at this time. Patient and/or kj2 family updated on plan of care and expected duration. Pain level reassessed. Patient is alert, oriented x 3, equal unlabored respirations, skin warm/dry/pink. 17:02 Reassessment: No changes from previously documented assessment. Patient and/or family kj2 updated on plan of care and expected duration. Pain level reassessed. Patient is alert, oriented x 3, equal unlabored respirations, skin warm/dry/pink. Vital Signs: 12:07 BP 103 / 59; Pulse 65; Resp 17; Temp 97.8; Pulse Ox 100% on R/A; Weight 83.46 kg; ll1 Height 5 ft. 9 in. ; Pain 10/10; 12:23 BP 105 / 64; Pulse 62; Resp 18; Temp 98.2; Pulse Ox 98% on R/A; kj2 13:44 BP 118 / 75; Pulse 60; Resp 18; kj2 15:14 BP 109 / 59; Pulse 57; Resp 18; Pulse Ox 99% on R/A; kj2 16:08 BP 103 / 79; Pulse 64; Resp 18; Pulse Ox 97% on R/A; kj2 17:02 BP 116 / 62; Pulse 63; Resp 16; Pulse Ox 97% on R/A; kj2 12:07 Body Mass Index 27.17 (83.46 kg, 175.26 cm) ll1 12:07 Pain Scale: Adult ll1 ED Course: 11:59 Patient arrived in ED. ll1 12:00 Arm band placed on Patient placed in an exam room, on a stretcher. ll1 12:04 Alex Rodas DO is Attending Physician. ms3 12:10 Triage completed. ll1 12:22 Darline Katz, RN is Primary Nurse. kj2 12:25 Patient has correct armband on for positive identification. Bed in low position. Call kj2 light in reach. Provided Education on: call light, fall precautions. 13:09 Extrem Venous W Compression Kin US In Process Unspecified. EDMS 13:32 Inserted saline lock: 20 gauge in left antecubital area, using aseptic technique. Blood kj2 collected. Flushed with 10 mL NS. 13:44 Initial lab(s) drawn, EKG done, by ED staff. kj2 13:45 No provider procedures requiring assistance completed. kj2 14:22 CT Chest For PE Angio In Process Unspecified. EDMS 16:09 initiated transfer to [facility]. bd 17:32 PT-INR Sent. kj2 18:09 [address] transfer [address] [facility] [id number] river hudson approval given by patrick barnes, will be transferred by [facility]. Administered Medications: 16:09 Drug: Enoxaparin Sub-Q 1 mg/kg Sub-Q once Route: Sub-Q; Site: abdomen; kj2 16:45 Follow up: Response: No adverse reaction kj2 Medication: 12:25 VIS not applicable for this client. kj2 Outcome: 15:23 ER care complete, transfer ordered by . ms3 19:07 Patient left the ED. jb4 Signatures: Dispatcher [employer] EDMS Soraya Soliz James, RN RN jb4 Ellie Ward RN RN ll1 Alex Rodas DO DO ms3 Darline Katz, RN RN kj2
[2024-02-22 16:00] LABS: Anisocytosis 1+; Blood Morphology Comment NOTED (NOT SEEN); Ovalocytes SLIGHT; Platelet Estimate ADEQ; Poikilocytosis SLIGHT; White Blood Cell Scan OK (OK)
[2024-02-22] MEDS ORDERED: ENOXAPARIN 100 MG/ML SYR SQ ONE (16:00)
[2024-02-22 17:44] LABS: PT Prothrombin Time 12.1 SECONDS (9.4-12.5); Protime INR 1.08
[2024-02-22 19:58] VITALS: TEMP 98.2
[2024-02-22 20:03] VITALS: O2SAT 97
[2024-02-22 20:05] VITALS: BP 116/62
== END 2024-02-22 19:07 | disposition short-term general hospital (02) ==
LOC: ER 11:57
DX: I82.403 Acute embolism and thrombosis of unspecified deep veins of lower extremity, bilateral (principal); Z86.718 Personal history of other venous thrombosis and embolism; Z79.01 Long term (current) use of anticoagulants; F17.210 Nicotine dependence, cigarettes, uncomplicated
CPT/HCPCS: 85025; 80048; 36415; 85610; 84484; 83880; 71275; 93970; Q9967; J1650

== ENCOUNTER 2024-10-31 06:36 | Day surgery (SDC) | payer OTHER ==
[2024-10-30 15:37] LABS: PT Prothrombin Time 10.8 SECONDS (10-13.0); PTT, Activated Partial Thromb 29.8 SECONDS (27.2-37.4); Protime INR 0.94
--- NOTE | 2024-10-30 20:18 | RAD REPORT ---
EXAMINATION: TWO VIEW CHEST XR CLINICAL INDICATION: Male, 64 years old. BR MAIN Pre-op pending port placement. Hypertension TECHNIQUE: 2 view radiographs of the chest were performed. COMPARISON: 10/25/2024 CT chest FINDINGS: The lungs are well inflated and clear. No pneumothorax or sizable effusion. The heart is normal in si ze. Mediastinal contours are unremarkable. IMPRESSION: No acute or significant abnormalities.
[2024-10-31] MEDS: Ringers Lactate 1,000 ML IV ONE (06:40)
[2024-10-31] MEDS ORDERED: FENTANYL CITR 100 MCG/2 ML ONE (07:20)
[2024-10-31] MEDS ORDERED: propofoL 200 MG/20 ML VIAL IV ONE (07:20)
[2024-10-31] MEDS ORDERED: LIDOCAINE 2% MPF 5 ML VIAL ONE (07:20)
[2024-10-31] MEDS ORDERED: ONDANSETRON 4 MG/2 ML VIAL ONE (07:20)
[2024-10-31] MEDS ORDERED: MIDAZOLAM HCL 2 MG/2 ML INJ ONE (07:21)
[2024-10-31] MEDS ORDERED: NS 0.9% VIAL 20 ML ONE (07:25)
[2024-10-31] MEDS ORDERED: GLYCOPYRROLATE 0.2 MG/ML SYR ONE (07:56)
[2024-10-31] MEDS ORDERED: dexAMETHasone 10 MG/ML VIAL ONE (07:56)
[2024-10-31] MEDS: CEFAZOLIN SODIUM 2 GM/VIAL ONE (07:57)
[2024-10-31] MEDS: LIDOCAINE 1% 20 ML MDV ONE (08:10)
[2024-10-31] MEDS: HEPARIN 5000 UNIT/ML 1 ML VIAL ONE (08:17)
[2024-10-31] MEDS ORDERED: Mastisol Adhesive Liq ONE (08:24)
--- NOTE | 2024-10-31 08:56 | P.OP ---
Date of Service: 10/31/24 Preop diagnosis: Rectal and renal cancer Postop diagnosis: Same Procedure performed: Placement of right IJ, Port-A-Cath with fluoroscopy and Doppler Surgeon: Jose Montgomery MD Machine Burrer: None Estimated blood loss: Minimal Specimen: None Findings: Normal anatomy Anesthesia: General Complications: None Drains: None Fluids and blood products: Nonapplicable Disposition: Recovery room Operative note: Patient brought to the OR and placed in the supine position. General anesthesia began. Patient prepped and draped in usual sterile fashion. Lidocaine 1% infiltrated locally. Doppler device used to identify the right internal jugular vein. 18-gauge needle used to access the right internal jugular vein. Guidewire passed and position confirmed with fluoroscopy. A 3 cm counterincision made on the right anterior chest. A pocket created. Bleeding controlled with cautery. Tunneling device used to tunnel the catheter between the 2 wounds. Catheter tip placed at the SVC right atrial junction under fluoroscopy. Catheter cut to appropriate size and attached to the Port-A-Cath device. Port-A-Cath device attached to subcutaneous tissue with 3-0 Vicryl. 3- 0 chromic used to reapproximate subcutaneous tissue and close skin. The port flushed with heparin packed with heparin with good blood flow. Sterile dressing applied. Patient awakened and taken to recovery room in good general condition. Chest x-ray has been ordered. CC: Dr. Granados's office
--- NOTE | 2024-10-31 09:26 | RAD REPORT ---
EXAMINATION: ONE VIEW CHEST XR CLINICAL INDICATION: Male, 64 years old.,Status post Port-A-Cath placement TECHNIQUE: Frontal chest projection is submitted. Examination is limited by patient positioning and t echnique. COMPARISON: 10/30/2024 FINDINGS: Right IJ Port-A-Cath in place with smooth curve tracking cranially along the most distal internal jug ular vein, without significant kinking. Tip of the catheter terminates at the superior cavoatrial junction. Suboptimal inspiratory effort particularly of the right lung somewhat limits evaluation. Th e lungs are well inflated and clear. No pneumothorax or sizable effusion. The heart is normal in size. Mediastinal contours are unremarkable. IMPRESSION: Satisfactory positioning of right IJ Port-A-Cath as above. No pneumothorax.
[2024-10-31] MEDS ORDERED: HYDROCODONE/APAP 7.5/325 MG TAB ONE (09:38)
[2024-10-31] MEDS: HYDROCODONE/APAP 7.5/325 MG TAB PO PRN (09:40)
[2024-10-31 10:18] VITALS: BP 124/61; TEMP 97.7; O2SAT 100
--- NOTE | 2024-10-31 13:23 | RAD REPORT ---
EXAM: Fluoroscopy use, Fluoroscopy <1 Hour HISTORY: PORT A CATH COMPARISON: None FINDINGS: Multiple images were sent to PACS, during a fluoroscopically guided procedure. No radiologi st was involved in protocoling or performance of the study, and no radiologist was present for the duration of the procedure. No interpretation of the saved images will be provided. Total fluoroscopy time: 0.3. 7.32 mGy IMPRESSION: Documentation of fluoroscopy use as above. Transcribed Date/Time: 10/31/2024 1:23 PM
--- NOTE | 2024-11-01 11:48 | EKG ---
Test Date: 2024-10-30 Test Time: 15:13:52 Compliance Manager: KIN MEASUREMENT RESULTS: Intervals: Rate: 57 MD: 146 QRSD: 108 QT: 448 QTc: 436 Wilsons: P: 67 MD: 146 QRS: 80 T: 68 INTERPRETIVE STATEMENTS: Sinus bradycardia Otherwise normal ECG Compared to ECG 02/22/2024 13:40:56 Sinus rhythm no longer present Myocardial infarct finding no longer present Electronically Signed On 11-01-24 11:43:18 CDT by Reggie Alarcon
== END 2024-10-31 10:04 | disposition home or self-care (01) ==
LOC: OR 06:36
PROVIDERS: ATTEND Surgery
PROC: 0JH60WZ Insertion of Totally Implantable Vascular Access Device into Chest Subcutaneous Tissue and Fascia, Open Approach (ICD-10-PCS; principal; 2024-10-31 07:30)
DX: C20 Malignant neoplasm of rectum (principal); C79.00 Secondary malignant neoplasm of unspecified kidney and renal pelvis
CPT/HCPCS: 93005; 36415; 85610; 85730; 71045; 71046; 76000; 36561; J1644 ×2; A4216; J2704; J2003 ×2; J2250; J3010; J1100; J2405; J7120; C1788